=== PATIENT | male | born 1955 | race Caucasian/White ===

== ENCOUNTER 2018-12-07 04:05 | Emergency (ER) | payer OTHER ==
[~2018-12-07] VITALS: Ht 182.9 cm; Wt 77.1 kg
[~2018-12-07 04:05] MED LIST: A THRU Z SELEC1 EAC6 PO; ASPIR 8181 MG PO; DOXYCYCLINE 10100 M1 PO; SORINE 80 MG TA80 M1 PO
[2018-12-07] MEDS ORDERED: PROAIR HFA8.5 GM INH (04:48)
[2018-12-07] MEDS ORDERED: AUGMENTIN 875-1 EACH PO (04:48)
[2018-12-07] MEDS ORDERED: PREDNISONE50 MG PO (04:48)
[2018-12-07 05:20] VITALS: BP 120/61
== END 2018-12-07 05:21 | disposition home or self-care (01) ==
LOC: M.ERS 04:05
DX: J40 Bronchitis, not specified as acute or chronic (principal); I48.91 Unspecified atrial fibrillation; R09.89 Other specified symptoms and signs involving the circulatory and respiratory systems; R53.1 Weakness